=== PATIENT | female | born 1990 | race American Indian/Alaskan Native ===

== ENCOUNTER 2016-11-15 02:24 | Emergency (ER) | payer SELFPAY ==
[2016-11-15 02:46] VITALS: PULSE 78; TEMP 99.1; O2SAT 99
--- NOTE | 2016-11-15 03:08 | ED PDOC ---
Arrival/HPI <Latrell Ennis - Last Filed: 11/15/16 03:39> - General Historian: Patient <Dione Park - Last Filed: 11/15/16 04:32> - General Chief Complaint: ENT Problem Time Seen by Provider: 11/15/16 02:57 - History of Present Illness Narrative History of Present Illness (Text): 11/15/16 03:02 patient is a 26 y/o with no significant pmh presenting with sore throat for 5 days. Patient states the sore throat was sudden, accompanied with cough productive with yellowish sputum. Patient denies fever, admits to chills, denies cp or sob. Patient also c/o left ear pain. Patient has been using hitting pad and massage with no relief. Patient decided to come in tonight because she wasn't able to fall asleep due to the discomfort. Denies cp, sob, denies n/v/d. Patient is able to eat solid food, denies sob or muffled voice. Admits to sick contact at work, no recent travel, no sick contact at home, has 2 pet dogs at home. 11/15/16 03:08 11/15/16 03:11 (Dione Park) Past Medical History - Provider Review Nursing Documentation Reviewed: Yes - Travel History Have you recently traveled outside [place] w/in the past 3 mons?: No - Psychiatric Hx Substance Use: No - Suicidal Assessment Feels Threatened In Home Enviroment: No <Dione Park - Last Filed: 11/15/16 04:32> Family/Social History - Physician Review Nursing Documentation Reviewed: Yes Family/Social History: No Known Family HX Smoking Status: Never Smoked Hx Alcohol Use: No Hx Substance Use: No <Dione Park - Last Filed: 11/15/16 04:32> Allergies/Home Meds <Latrell Ennis - Last Filed: 11/15/16 03:39> <Dione Park - Last Filed: 11/15/16 04:32> Allergies/Adverse Reactions: Allergies No Known Allergies Allergy (Unverified 01/14/15 21:15) Review of Systems - Review of Systems Constitutional: Normal. absent: Fevers Eyes: Normal ENT: Sore Throat, Sinus Congestion Respiratory: Cough, Sputum. absent: Wheezing Cardiovascular: Normal Gastrointestinal: Normal Genitourinary Female: Normal Musculoskeletal: Normal Skin: Normal Neurological: Normal Endocrine: Normal Hemo/Lymphatic: Normal Psychiatric: Normal <Dione Park - Last Filed: 11/15/16 04:32> Physical Exam Vital Signs Reviewed: Yes Temperature: Afebrile Blood Pressure: Normal Pulse: Regular Respiratory Rate: Normal Appearance: Positive for: Well-Appearing, Non-Toxic, Comfortable Pain Distress: None Mental Status: Positive for: Alert and Oriented X 3 - Systems Exam Head: Present: Atraumatic, Normocephalic Pupils: Present: PERRL Extroacular Muscles: Present: EOMI Conjunctiva: Present: Normal Ears: Present: Normal, NORMAL TM Mouth: Present: Dry Pharnyx: Present: ERYTHEMA (mild). No: EXUDATE, TONSILS ENLARGED, Uvular Deviation, Muffled/Hoarse Voice, Strider Nose (External): Present: Atraumatic Nose (Internal): Present: Normal Inspection Neck: Present: Normal Range of Motion, Lymphadenopathy (left anterior cervical.) . No: Meningeal Signs, MIDLINE TENDERNESS, Paraspinal Tenderness, Trachea Midline Respiratory/Chest: Present: Clear to Auscultation, Good Air Exchange, Respiratory Distress. No: Accessory Muscle Use Cardiovascular: Present: Regular Rate and Rhythm, Normal S1, S2. No: Murmurs Abdomen: Present: Normal Bowel Sounds. No: Tenderness, Distention Back: Present: Normal Inspection Upper Extremity: Present: Normal Inspection. No: Edema Lower Extremity: Present: Normal Inspection. No: Edema Neurological: Present: GCS=15 Skin: Present: Warm, Dry, Normal Color. No: Rashes Psychiatric: Present: Alert, Oriented x 3, Normal Insight, Normal Concentration <Dione Park - Last Filed: 11/15/16 04:32> Vital Signs Temp Pulse Resp BP Pulse Ox 11/15/16 02:44 99.1 F 78 18 122/74 99 Medical Decision Making <Latrell Ennis - Last Filed: 11/15/16 03:39> Re-evaluation Time: 04:25 Reassessment Condition: Re-examined, Improved <Dione Park - Last Filed: 11/15/16 04:32> ED Course and Treatment: Impression: Pt seen and evaluated with medical staff physician. Pt presented for sore throat x5 days with associated productive cough with yellow sputum and left ear pain. Aware and agree with HPI, clinical findings, plan, and management. Plan: -- Amoxil -- Decadron - Reassess and disposition (Latrell Ennis) - Medication Orders Current Medication Orders: Discontinued Medications Amoxicillin (Amoxil 500 Mg Cap) 500 mg PO STAT STA PRN Reason: Protocol Stop: 11/15/16 02:59 Last Admin: 11/15/16 03:22 Dose: 500 mg Dexamethasone (Decadron Inj) 10 mg IM STAT STA Stop: 11/15/16 02:59 Last Admin: 11/15/16 03:22 Dose: 10 mg - PA / [employer] / Resident Statement / has reviewed & agrees with the documentation as recorded. / has examined the patient and agrees with the treatment plan. <Latrell Ennis - Last Filed: 11/15/16 03:39> Disposition/Present on Arrival <Latrell Ennis - Last Filed: 11/15/16 03:39> - Present on Arrival Any Indicators Present on Arrival: No History of DVT/PE: No History of Uncontrolled Diabetes: No Urinary Catheter: No History of Decub. Ulcer: No History Surgical Site Infection Following: None - Disposition Have Diagnosis and Disposition been Completed?: Yes Disposition Time: 04:30 Patient Plan: Discharge <Dione Park - Last Filed: 11/15/16 04:32> - Disposition Diagnosis: Acute erythematous tonsillitis Disposition: HOME/ ROUTINE Condition: STABLE Discharge Instructions (ExitCare): Tonsillitis (ED) Additional Instructions: Take antibiotic as prescribed Drink cool liquid, not hot. Follow up with PMD. Go to the nearest emergency room if you experience chest pain, fever, inability to speak, or swallow. or symptoms worsened. Prescriptions: Amoxicillin [Amoxil 500 mg Cap] 500 mg PO BID 10 Days Ref[place]: [facility] [place] - Follow up with primary
[2016-11-15 06:15] VITALS: BP 128/80; RESP 16
== END 2016-11-15 04:35 | disposition home or self-care (01) ==
LOC: ED 02:24
DX: J03.90 Acute tonsillitis, unspecified (principal); L53.9 Erythematous condition, unspecified
CPT/HCPCS: 96372; 99283; J1100